=== PATIENT | female | born 1980 | race Caucasian/White ===

== ENCOUNTER 2024-04-01 08:04 | Emergency (ER) | payer OTHER ==
[~2024-04-01] VITALS: Ht 149.9 cm; Wt 49.9 kg
[2024-04-01 08:12] VITALS: BP 134/70; PULSE 82; RESP 18; TEMP 98.2; O2SAT 100
[2024-04-01 09:46] LABS: ALBUMIN 3.2 g/dL (3.4-5.0); ANION GAP 6.9 (8-16); CALCIUM 8.8 mg/dL (8.5-10.1); CARBON DIOXIDE 31.3 mmol/L (21-32); CREATININE 0.4 mg/dL (0.6-1.3); POTASSIUM 4.2 mmol/L (3.5-5.1); TOTAL BILIRUBIN 0.3 mg/dL (0.0-1.0); TOTAL PROTEIN, SERUM 6.7 g/dL (6.4-8.2)
[2024-04-01 09:54] LABS: BASOPHILS % (AUTO) 0.4 % (0.0-2.0); EOSINOPHILS # (AUTO) 0.1 K/uL (0-0.4); EOSINOPHILS % (AUTO) 2.4 % (0.0-4.0); HEMATOCRIT 34.2 % (36-48); HEMOGLOBIN 11.3 g/dL (12.0-16.0); LYMPHOCYTES # (AUTO) 1.8 K/uL (2.5-16.5); LYMPHOCYTES % (AUTO) 36.1 % (20.5-51.1); MEAN CORPUSCULAR HEMOGLOBIN 27 pg (27-31); MEAN CORPUSCULAR HGB CONC 33 g/dL (33-37); MEAN CORPUSCULAR VOLUME 81.2 fL (80-94); MONOCYTES # (AUTO) 0.5 K/uL (0.8-1.0); NEUTROPHILS # (AUTO) 2.6 K/uL (1.8-7.7); NEUTROPHILS % (AUTO) 52.1 % (42.2-75.2); PLATELET COUNT (AUTO) 283 K/uL (140-450); RED BLOOD CELL COUNT(AUTO) 4.21 MIL/uL (4.20-5.40); RED CELL DISTRIBUTION WIDTH 13.6 % (11.6-13.7); WHITE BLOOD COUNT (AUTO) 5.1 K/uL (4.8-10.8)
[2024-04-01] MEDS ORDERED: SENN1TAB80 PO (10:17)
[2024-04-01 10:26] VITALS: BP 111/62; PULSE 88; RESP 16; TEMP 98.1; O2SAT 99
== END 2024-04-01 10:26 | disposition home or self-care (01) ==
LOC: MED 08:04
DX: K62.5 Hemorrhage of anus and rectum (principal); Z79.899 Other long term (current) drug therapy; Z88.0 Allergy status to penicillin
CPT/HCPCS: 36415; 80053; 85025; 99283